=== PATIENT | female | born 1990 | race Hispanic/Latino ===

== ENCOUNTER 2017-01-14 13:21 | Outpatient (CLI) | payer OTHER ==
[~2017-01-14] VITALS: Ht 167.6 cm; Wt 81.0 kg
[2017-01-14 13:41] VITALS: BP 119/72
[2017-01-14] MEDS ORDERED: PRENATAL TABLE1 EAC3 PO (13:50)
[2017-01-14] MEDS ORDERED: SYNTHROID25 MCG PO (13:51)
[2017-01-14 13:52] VITALS: BP 113/72
[2017-01-14 14:07] VITALS: BP 111/55
[2017-01-14 14:22] VITALS: BP 117/61
[2017-01-14 14:37] VITALS: BP 119/61
[2017-01-14 14:53] VITALS: BP 109/66
== END 2017-01-14 16:59 | disposition home or self-care (01) ==
LOC: LDRP-OP 13:21 → 2WEST 13:22
DX: O26.893 Other specified pregnancy related conditions, third trimester (principal); R51 Headache; Z3A.36 36 weeks gestation of pregnancy
CPT/HCPCS: 59025; G0378

== ENCOUNTER 2017-05-20 08:32 | Emergency (ER) | payer OTHER ==
[~2017-05-20] VITALS: Ht 167.6 cm; Wt 74.1 kg
[~2017-05-20 08:32] MED LIST: PRENATAL TABLE1 EAC3 PO; SYNTHROID25 MCG PO
[2017-05-20] MEDS ORDERED: PREDNISONE50 MG PO (09:34)
[2017-05-20 10:24] VITALS: BP 115/70
== END 2017-05-20 10:34 | disposition home or self-care (01) ==
LOC: EME 08:32
DX: T78.40XA Allergy, unspecified, initial encounter (principal); Z88.0 Allergy status to penicillin
CPT/HCPCS: 99281; 99284

== ENCOUNTER 2017-09-09 18:10 | Emergency (ER) | payer OTHER ==
[~2017-09-09] VITALS: Ht 165.1 cm; Wt 78.7 kg
[~2017-09-09 18:10] MED LIST changes: +PREDNISONE50 MG PO
[2017-09-09 18:35] VITALS: BP 132/100
== END 2017-09-09 20:03 | disposition left against medical advice (07) ==
LOC: EME 18:10
DX: R06.00 Dyspnea, unspecified (principal); R20.2 Paresthesia of skin; Z53.21 Procedure and treatment not carried out due to patient leaving prior to being seen by health care provider